=== PATIENT | female | born 1955 | race Caucasian/White ===

== ENCOUNTER 2019-03-08 08:20 | Day surgery (SDC) | payer OTHER ==
[2019-03-08] VITALS (20 sets, daily range): BP systolic 98–144; BP diastolic 50–74; PULSE 70–100; RESP 12–27; Ht 156.2 cm; Wt 68.8 kg
[~2019-03-08] VITALS: Ht 156.2 cm; Wt 68.8 kg
--- NOTE | 2019-03-08 06:49 | PREOPHP ---
DATE OF ADMISSION: 03/08/2019 HISTORY OF PRESENT ILLNESS: A 63-year-old patient is going to be admitted for diagnostic arthroscopy of right knee, partial medial lateral meniscectomy, possible repair, synovectomy, application of Poli es dressing. This patient has been experiencing pain in the right knee for quite a while. Conservative treatment resulted in limited benefit and the patient has requested surgical intervention. PAST MEDICAL HISTORY: Unknown. MEDICATIONS: 1. . 2. Sertraline. 3. . 4. . 5. Sulindac. 6. Baclofen. 7. B6. 8. Folic acid. 9. D3. 10. Postoperatively ibuprofen and Bactrim-DS was given. FAMILY HISTORY: Positive for stroke and cancer. SOCIAL HISTORY: Nonsmoker, nondrinker. ALLERGIES: NO HISTORY OF ALLERGY TO MEDICATION. PHYSICAL EXAMINATION: VITAL SIGNS: Height 5 foot 2 and weighs 150 pounds. SKIN: Within normal limits. ENT: PERRLA. HEAD AND NECK: Normocephalic. Trachea midline. Bilateral symmetrical carotid pulses. No mass, no bruit, no lymphadenopathy. CARDIOVASCULAR: Normal sinus rhythm. S1, S2 normal. No murmur, no JVD, no peripheral edema. LUNGS: Clear. ABDOMEN: Soft. No organomegaly. No mass. Bowel sounds present. GENITOURINARY AND RECTAL: Not done, not pertinent to this admission. MUSCULOSKELETAL: Head and neck unremarkable. EXTREMITIES: Normal. SPINE: Shows scoliosis of the spine with no tenderness. Post-surgery on the back, well healed scar from previous surgery, nonsymptomatic. RIGHT KNEE: Shows range of motion to be above 90%, minimal muscle atrophy. No instability. There i s joint line tenderness. Positive Sonia test. Mild synovitis. There is effusion present. NEUROLOGICAL: Normal. MRI of the right knee. Report indicates a complex tear in the posterior horn, body of the medial men iscus with anterior cruciate. 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 Th ere is grade II to III of the posterior medial femoral condyle chondromalacia, grade II chondromalaci a of lateral femoral condyle, joint effusion. DIAGNOSES: Internal derangement of the right knee. Treatment plan, alternatives, risks and benefits discussed. The patient understands possible complic ation from surgery such as infection, nerve damage, vascular damage, possibility of deep venous throm bosis, pulmonary embolism, hypersensitivity from medication, and even . Eden result may not be obtained depending on actual finding, known or unknown factor or factors. No guarantee has been mad e. Formal H and P is supposed to be done by PCP. Dictated By: CINDY HI/MICHAEL Conf#: [id number] DID#: [id number]
[~2019-03-08 08:20] MED LIST: CLON0.5T14 PO; EPINEPHrine 1 MG/ML 30 ML INJ ZFS ONE; SERT100T PO
[2019-03-08] MEDS ORDERED: LACTATED RINGER'S 1,000 ML IV SCH (09:30)
[2019-03-08] MEDS ORDERED: morphine SULFATE/PF (10 MG/10 ML) INJ ONE (10:06)
--- NOTE | 2019-03-08 10:21 | PREAC ---
Date/Time of Note Date/Time of Note DATE: 03/08/19 TIME: 10:20 Anesthesia Eval and Record Evaluation Time Pre-Procedure Interview DATE: 03/08/19 TIME: 10:20 Age 63 Sex female NPO: 8 hrs Preoperative diagnosis knee pain Planned procedure knee scope Past Medical History Past Medical History: Includes Endo: Other (pre diabetic) Surgery & Anesthesia Issues No known issue Meds Anticoagulation: No Beta [place] within 24 hr: No Reason Beta Kamilah not given: Pt. not on B-Kamilah Discontinued Reported Medications Sertraline Hcl* (Zoloft*) 100 Mg Tablet, 100 MG PO DAILY, #30 TAB 10/10/15 Clonazepam* (Clonazepam*) 0.5 Mg Tablet, 0.5 MG PO BID, TAB 10/10/15 Current Medications Lactated Ringer's 1,000 ml @ 30 mls/hr Q24H IV ; Start 03/08/19 at 09:30 Meds reviewed: Yes Allergies Coded Allergies: No Known Allergy (Unverified , 03/08/19) Allergies Reviewed: Yes Labs/Studies Labs Reviewed: Reviewed by anesthesiologist test: Negative Pre-procedure Exam Last vitals Vital Signs Date Temp Pulse Resp B/P (MAP) Pulse Ox O2 O2 Flow FiO2 Time Delivery Rate 03/08/19 96.9 74 16 144/74 97 Room Air 09:45 (97) Airway: Adequate mouth opening Mallampati: Mallampati I Teeth: Normal Lung: Normal Heart: Normal ASA Physical Status ASA physical status: 1 Emergency: None Planned Anesthetic General/MAC: ETT Pre-operative Attestations Prior to commencing anesthesia and surgery, the patient was re-evaluated, there was verification of: *The patient's identity *The results of appropriate recent lab work and preoperative vital signs *The above evaluation not changing prior to induction *Anesthetic plan, risk benefits, alternative and complications discussed with patient/family; questions answered; patient/family understands, accepts and wishes to proceed. MONICA KNOWLES MD Mar 08, 2019 10:21
[2019-03-08] MEDS ORDERED: ONDANSETRON 4 MG INJ IV PRN (10:30)
[2019-03-08] MEDS ORDERED: MEPERIDINE 25 MG INJ IV PRN (10:30)
[2019-03-08] MEDS ORDERED: KETOROLAC 15 MG INJ IV PRN (10:30)
[2019-03-08] MEDS ORDERED: HYDROmorphONE 1 MG/5 ML IV SYRINGE IV PRN ×2 (10:30)
[2019-03-08] MEDS ORDERED: LABETALOL HCL 20MG INJ IV PRN (10:30)
[2019-03-08] MEDS ORDERED: hydrALAzine 20 MG INJ IV PRN (10:30)
[2019-03-08] MEDS ORDERED: CEFAZOLIN 1 GM INJ ONE (10:44)
[2019-03-08] MEDS ORDERED: ONDANSETRON 4 MG INJ ONE (10:44)
[2019-03-08] MEDS ORDERED: HYDROmorphONE 2 MG/ML SYG ONE (10:44)
[2019-03-08] MEDS ORDERED: PROPOFOL 20 ML ONE (10:45)
[2019-03-08] MEDS ORDERED: SUCCINYLCHOLINE CHLORIDE 100 MG/5 ML SYG IV ONE (10:45)
[2019-03-08] MEDS ORDERED: EPINEPHrine 1 MG/ML 30 ML INJ IRR ONE (11:15)
--- NOTE | 2019-03-08 11:45 | SIPON ---
Date/Time of Note Date/Time of Note DATE: 03/08/19 TIME: 11:40 Operative Report Preoperative Diagnosis Right knee torn medial and lateral meniscus, plus synovitis Postoperative Diagnosis The same Operation/Procedure Performed Diagnostic scope, partial medial and lateral meniscectomy, plus synovectomy application of Ba dressing Surgeon rica Montero MD judicial assistant ultrasound tech Anesthesia: general Estimated blood loss: minimal Transfusion Required none Specimen none Grafts/Implants none Complications none RICA MONTERO MD Mar 08, 2019 11:45
[2019-03-08] MEDS ORDERED: HYDROCODONE/APAP (5/325) TAB PO PRN ×2 (12:00)
--- NOTE | 2019-03-08 12:30 | PAC ---
Date/Time of Note Date/Time of Note DATE: 03/08/19 TIME: 12:30 Post-Anesthesia Notes Post-Anesthesia Note Last documented vital signs Vital Signs Date Temp Pulse Resp B/P (MAP) Pulse Ox O2 O2 Flow FiO2 Time Delivery Rate 03/08/19 96.9 74 16 144/74 97 Room Air 09:45 (97) Activity: WNL Respiratory function: WNL Cardiovascular function: WNL Mental status: Baseline Pain reasonably controlled: Yes Hydration appropriate: Yes Nausea/Vomiting absent: Yes MONICA KNOWLES MD Mar 08, 2019 12:30
--- NOTE | 2019-03-08 14:37 | OPR ---
DATE OF OPERATION: 03/08/2019 PREOPERATIVE DIAGNOSES: 1. Torn medial meniscus. 2. Torn lateral meniscus. 3. Synovitis, right knee. POSTOPERATIVE DIAGNOSES: 1. Torn medial meniscus. 2. Torn lateral meniscus. 3. Synovitis, right knee. PROCEDURE PERFORMED: Diagnostic arthroscopy, partial medial meniscectomy, partial lateral meniscecto my, total synovectomy, application of Ba dressing ANESTHESIA: General. ANESTHESIOLOGIST: Dr. Guzman. BLEEDING: Minimal. COMPLICATIONS: None. DESCRIPTION OF PROCEDURE: The patient was transferred to the operating room and placed on the table in supine position. General anesthesia was induced. Two grams of Ancef was given IV. Right lower e xtremity was prepped and draped in routine fashion. Landmarks were marked through two regular anteri or portals, one medial and one lateral to parapatellar tendon. Operative arthroscopy was commenced. Examination of suprapatellar pouch indicated mild to moderate and limited synovitis which was taken care of by Arthrocare and Bovie by coagulation. Patella indicates a grade II, early grade III chondr omalacia on the patellae side but on the trochlear side was grade III and some parts into grade IV ch ondromalacia. Going medial compartment, there was marked amount of synovitis anteriorly with complex tear of the posterior horn, of the medial meniscus; therefore, partial medial meniscectomy to stable margins was done and synovectomy in the medial compartment was done. The meniscus was intact. Ther e was synovitis in the intercondylar notch. Again, coagulated . Lateral compartment also indic ated synovitis and some flap tear ; therefore, partial lateral meniscectomy to stable margins wa s done. Periphery of the meniscus was intact. Both medial and lateral compartment, there is a grade III chondromalacia but more on the medial side than on the lateral side. Knee was evacuated from de bris with copious amount of saline irrigation. Portal was closed with benzoin and Steri-Strips. Ten mg Duramorph mixed with 10 mL of injectable saline was injected into the knee. Sterile dressing was applied. Procedure terminated. General anesthesia was stopped. The patient was taken to recovery room in stable condition. Dictated By: CINDY HI/MICHAEL Conf#: [id number] DID#: [id number]
== END 2019-03-08 16:09 | disposition home or self-care (01) ==
LOC: SDS 08:20
PROVIDERS: ATTEND Internal Medicine Endocrinology, Diabetes & Metabolism
DX: S83.231D Complex tear of medial meniscus, current injury, right knee, subsequent encounter (principal); S83.281D Other tear of lateral meniscus, current injury, right knee, subsequent encounter; X58.XXXD Exposure to other specified factors, subsequent encounter; M65.861 Other synovitis and tenosynovitis, right lower leg; R73.03 Prediabetes
CPT/HCPCS: 29880; C1713; J0171; J1170; J2274; Z7512; Z7610; J0690; J2405